=== PATIENT | male | born 2000 | race Two or more races ===

== ENCOUNTER 2018-02-24 11:56 | Emergency (ER) | payer OTHER ==
[~2018-02-24] VITALS: Ht 177.8 cm; Wt 97.5 kg
== END 2018-02-24 16:12 | disposition home or self-care (01) ==
LOC: ER 11:56
DX: J06.9 Acute upper respiratory infection, unspecified (principal); J32.8 Other chronic sinusitis

== ENCOUNTER 2020-01-17 17:58 | Emergency (ER) | payer OTHER ==
[~2020-01-17] VITALS: Ht 177.8 cm; Wt 104.3 kg
== END 2020-01-17 21:39 | disposition home or self-care (01) ==
LOC: ER 17:58
DX: K52.89 Other specified noninfective gastroenteritis and colitis (principal); Z20.828 Contact with and (suspected) exposure to other viral communicable diseases

== ENCOUNTER 2020-05-19 22:44 | Inpatient (IN) | payer OTHER ==
[~2020-05-19] VITALS: Ht 177.8 cm; Wt 99.8 kg
[2020-05-21] MEDS ORDERED: CIPRO500 MG PO (09:15)
[2020-05-21] MEDS ORDERED: PROTONIX40 MG PO (09:16)
[2020-05-21] MEDS ORDERED: ULTRACET PO (09:17)
== END 2020-05-21 14:50 | disposition home or self-care (01) | DRG 343 ==
LOC: ER 22:44 → SEC-K 05-20 05:05 → O/R 05-20 08:17 → SURH 05-20 09:53
PROVIDERS: ADMIT Surgery; ATTEND Surgery
PROC: 0DTJ0ZZ Resection of Appendix, Open Approach (ICD-10-PCS; principal; 2020-05-20 07:00)
DX: K35.80 Unspecified acute appendicitis (principal); Z20.828 Contact with and (suspected) exposure to other viral communicable diseases

== ENCOUNTER 2021-08-30 16:37 | Emergency (ER) | payer OTHER ==
[~2021-08-30] VITALS: Ht 177.8 cm; Wt 93.0 kg
[~2021-08-30 16:37] MED LIST: CIPRO500 MG PO; PROTONIX40 MG PO; ULTRACET PO
== END 2021-08-30 21:23 | disposition home or self-care (01) ==
LOC: ER 16:37
DX: S90.02XA Contusion of left ankle, initial encounter (principal); W18.31XA Fall on same level due to stepping on an object, initial encounter; Y93.I9 Activity, other involving external motion; Y92.9 Unspecified place or not applicable